=== PATIENT | female | born 1965 | race Caucasian/White ===

== ENCOUNTER 2017-07-04 14:38 | Emergency (ER) | payer MEDICAID ==
[~2017-07-04] VITALS: Ht 147.3 cm; Wt 121.1 kg
[2017-07-04 14:41] VITALS: BP 119/80
== END 2017-07-04 16:53 | disposition home or self-care (01) ==
LOC: ED 14:38
DX: H60.502 Unspecified acute noninfective otitis externa, left ear (principal); J45.909 Unspecified asthma, uncomplicated

== ENCOUNTER 2017-11-13 13:39 | Emergency (ER) | payer MEDICAID ==
[~2017-11-13] VITALS: Ht 147.3 cm; Wt 122.9 kg
[2017-11-13 13:41] VITALS: Ht 147.3 cm; Wt 122.9 kg
[2017-11-13 16:13] VITALS: BP 145/75
== END 2017-11-13 16:13 | disposition home or self-care (01) ==
LOC: ED 13:39
DX: J20.9 Acute bronchitis, unspecified (principal)